=== PATIENT | male | born 1985 | race Caucasian/White ===

== ENCOUNTER 2018-12-13 13:03 | Emergency (ER) | payer SELFPAY ==
[2018-12-13] MEDS ORDERED: 0.9 % SODIUM CHLORIDE 1,000 ML BAG IV ONE ×2 (13:54→15:20)
[2018-12-13] MEDS ORDERED: ONDANSETRON HCL IV 4 MG/2 ML VIAL IV ONE (13:54)
[2018-12-13] MEDS ORDERED: HYDROMORPHONE HCL 2 MG/ML VIAL IVP ONE ×2 (13:58→14:46)
[2018-12-13 14:07] LABS: ABSOLUTE NEUTROPHIL COUNT 4.58; EOS % 1.4 % (0-6); GRAN % 57.8 % (47-80); HEMATOCRIT 44.3 % (42.0-52.0); HEMOGLOBIN 14.9 gm/dl (14.0-18.0); LYMPH % 31.6 % (16-45); MEAN CELL VOLUME 85.5 fl (81-97); MEAN CORPUSCULAR HEMOGLOBIN 28.8 pg (27-33); MEAN CORPUSCULAR HGB CONC 33.6 g/dl (32-36); MONO % 8.2 % (0-9); PLATELET COUNT 425 K/uL (130-400); RED BLOOD COUNT 5.18 M/uL (4.40-5.70); RED CELL DISTRIBUTION WIDTH 12.6 % (11.5-14.5); WHITE BLOOD COUNT W/O DIFF 7.9 K/uL (4.2-12.2)
--- NOTE | 2018-12-13 14:14 | Emergency Department Record ---
History of Present Illness - General Chief Complaint: Abdominal Pain Stated Complaint: LOWER RT ABDOMINAL PAIN Time Seen by Provider: 12/13/18 13:46 Source: Patient Mode of Arrival: Ambulatory Limitations: No limitations - History of Present Illness Initial Comments: pt had a sudden onset rlq ap 4 hrs ago. the pain is sharp and constant. MD Complaint: Abdominal pain Onset/Timin -: Hour(s) Location: RLQ Severity: Moderate Severity scale (1-10): 8 Quality: Sharp Consistency: Constant, Getting worse Improves With: Nothing Worsens With: Movement Associated Symptoms: Constipation, Nausea - Related Data Previous Rx's Medication Instructions Recorded Hydrocodone/Acetaminophen [[place] 1 each PO Q6HR #10 tablet 12/13/18 5-325 Tablet] Tamsulosin HCl [Flomax] 0.4 mg PO DAILY #5 cap.er.24h 12/13/18 Allergies Allergy/AdvReac Type Severity Reaction Status Date / Time No Known Drug Allergies Allergy Verified 12/13/18 13:09 Travel Screening - Travel/Exposure Within Last 30 Days Have you traveled within the last 30 days?: No - Travel/Exposure Within Last Year Have you traveled outside the [place] in the last year?: No - Additonal Travel Details Have you been exposed to anyone with a communicable illness?: No - Travel Symptoms Symptom Screening: None Review of Systems Reviewed: No additional complaints except as noted below Constitutional: Reports: As per HPI. Denies: Chills, Fever, Malaise, Night sweats, Weakness, Weight change Eyes: Reports: As per HPI. Denies: Eye discharge, Eye pain, Photophobia, Vision change ENT: Reports: As per HPI. Denies: Congestion, Dental pain, Ear pain, Epistaxis , Hearing loss, Throat pain Respiratory: Reports: As per HPI. Denies: Cough, Dyspnea, Hemoptysis, Stridor, Wheezes Cardiovascular: Reports: As per HPI. Denies: Arrhythmia, Chest pain, Dyspnea on exertion, Edema, Murmurs, Orthopnea, Palpitations, Paroxysmal nocturnal dyspnea, Rheumatic Fever, Syncope Endocrine: Reports: As per HPI. Denies: Fatigue, Heat or cold intolerance, Polydipsia, Polyuria Gastrointestinal: Reports: As per HPI, Abdominal pain. Denies: Constipation, Diarrhea, Hematemesis, Hematochezia, Melena, Nausea, Vomiting Genitourinary: Reports: As per HPI. Denies: Dysuria, Frequency, Hematuria, Incontinence, Retention, Testicular pain, Testicular mass, Urgency Musculoskeletal: Reports: As per HPI. Denies: Arthralgia, Back pain, Gout, Joint swelling, Myalgia, Neck pain Skin: Reports: As per HPI. Denies: Bruising, Change in color, Change in hair/ nails, Lesions, Pruritus, Rash Neurological: Reports: As per HPI. Denies: Abnormal gait, Confusion, Headache, Numbness, Paresthesias, Seizure, Tingling, Tremors, Vertigo, Weakness Psychiatric: Reports: As per HPI. Denies: Anxiety, Auditory hallucinations, Depression, Homicidal thoughts, Suicidal thoughts, Visual hallucinations Hematological/Lymphatic: Reports: As per HPI. Denies: Anemia, Blood Clots, Easy bleeding, Easy bruising, Swollen glands Past Medical History - SOCIAL HISTORY Smoking Status: Never smoker Alcohol Use: Rare Drug Use: None - RESPIRATORY Hx Respiratory Disorders: No - CARDIOVASCULAR Hx Cardio Disorders: No - NEURO Hx Neuro Disorders: No - GI Hx GI Disorders: No - Hx Genitourinary Disorders: No - ENDOCRINE Hx Endocrine Disorders: No - MUSCULOSKELETAL Hx Musculoskeletal Disorders: No - PSYCH Hx Psych Problems: No - HEMATOLOGY/ONCOLOGY Hx Hematology/Oncology Disorders: No Family Medical History Any Significant Family History?: Yes Hx Diabetes: Father Hx Kidney Disease: Father Physical Exam - General General Appearance: Alert, Oriented x3, Cooperative, Mild distress - Head Head exam: Normal inspection - Eye Eye exam: Normal appearance, PERRL, EOMI Pupils: Normal accommodation - ENT ENT exam: Normal exam, Mucous membranes moist, Normal external ear exam, Normal orophraynx Ear exam: Normal external inspection. negative: External canal tenderness Nasal Exam: Normal inspection. negative: Discharge, Sinus tenderness Mouth exam: Normal external inspection, Tongue normal Teeth exam: Normal inspection. negative: Dental caries Throat exam: Normal inspection. negative: Tonsillar erythema, Tonsillar exudate - Neck Neck exam: Normal inspection, Full ROM. negative: Tenderness - Respiratory Respiratory exam: Normal lung sounds bilaterally. negative: Respiratory distress - Cardiovascular Cardiovascular Exam: Regular rate, Normal rhythm, Normal heart sounds - GI/Abdominal GI/Abdominal exam: Soft, Normal bowel sounds, Guarding, Tenderness (rlq) - Rectal Rectal exam: Deferred - exam: Deferred - Extremities Extremities exam: Normal inspection, Full ROM, Normal capillary refill. negative: Tenderness - Back Back exam: Reports: Normal inspection, Full ROM. Denies: Muscle spasm, Rash noted, Tenderness - Neurological Neurological exam: Alert, CN II-XII intact, Normal gait, Oriented X3 - Psychiatric Psychiatric exam: Normal affect, Normal mood - Skin Skin exam: Dry, Intact, Normal color, Warm Course Vital Signs 12/13/18 13:10 Temperature 97.6 F Pulse Rate 73 Respiratory 20 Rate Blood Pressure 133/87 Pulse Ox 100 - Reevaluation(s) Reevaluation #1: 12/13/18 16:31 pt feels much better Medical Decision Making - Lab Data Result diagrams: 12/13/18 13:45 12/13/18 13:45 Lab Results 12/13/18 Range/Units 13:45 WBC 7.9 (4.2-12.2) K/uL RBC 5.18 (4.40-5.70) M/uL Hgb 14.9 (14.0-18.0) gm/dl Hct 44.3 (42.0-52.0) % MCV 85.5 (81-97) fl MCH 28.8 (27-33) pg MCHC 33.6 (32-36) g/dl RDW 12.6 (11.5-14.5) % Plt Count 425 H (130-400) K/uL MPV 10.0 (7.4-10.4) fl Gran % 57.8 (47-80) % Lymphocytes % 31.6 (16-45) % Monocytes % 8.2 (0-9) % Eosinophils % 1.4 (0-6) % Basophils % 1.0 (0-6) % Absolute Neutrophils 4.58 Disposition Disposition: Discharge Clinical Impression: Renal lithiasis Hydronephrosis Qualifiers: Hydronephrosis type: with ureteral calculous obstruction Qualified Code(s): N13.2 - Hydronephrosis with renal and ureteral calculous obstruction Disposition: Home, Self-Care Condition: (1) Good Instructions: Kidney Stones (ED) Additional Instructions: follow up with family doctor or urologist. return sooner if worse. push fluids Prescriptions: Hydrocodone/Acetaminophen [[place] 5-325 Tablet] 1 each PO Q6HR #10 tablet Tamsulosin HCl [Flomax] 0.4 mg PO DAILY #5 cap.er.24h Referrals: FAVIAN VAZQUEZ M.D. [MEDICAL DOCTOR] - Quality - Quality Measures Quality Measures: N/A - Blood Pressure Screening Does Patient Have Any of the Following: No Blood Pressure Classification: Pre-Hypertensive BP Reading Systolic Measurement: 133 Diastolic Measurement: 87 Screening for High Blood Pressure: < Pre-Hypertensive BP, F/U Documented > [ [id number]] Pre-Hypertensive Follow-up Interventions: Follow-up with rescreen every year.
[2018-12-13 14:17] LABS: BLOOD UREA NITROGEN 17 mg/dL (6-20); CREATININE 0.8 mg/dL (0.7-1.2); EST GLOMERULAR FILTRATION RATE > 60 mL/min; TOTAL PROTEIN 7.8 g/dL (6.6-8.7)
[2018-12-13 14:19] LABS: GLUCOSE,RANDOM 119 mg/dL (74-109)
[2018-12-13 14:22] LABS: ALKALINE PHOSPHATASE 55 U/L (40-129); ALT/SGPT 50 U/L (<41); AST/SGOT 41 U/L (10.0-50.0)
[2018-12-13 14:27] LABS: BILIRUBIN,DIRECT < 0.2 mg/dL (0-0.3)
[2018-12-13] MEDS ORDERED: KETOROLAC 30 MG/ML VIAL IVP ONE (15:16)
[2018-12-13 15:33] LABS: URINE APPEARANCE CLEAR; URINE BILIRUBIN NEGATIVE (NEGATIVE); URINE BLOOD LARGE (NEGATIVE); URINE COLOR YELLOW; URINE GLUCOSE (UA) NEGATIVE (NEGATIVE); URINE KETONE 15 mg/dL (NEGATIVE); URINE LEUKOCYTE ESTERASE NEGATIVE (NEGATIVE); URINE NITRITE NEGATIVE (NEGATIVE); URINE UROBILINOGEN 0.2 E.U./dL (0.20 - 1.00)
[2018-12-13 15:46] LABS: URINE AMORPHOUS SEDIMENT 1+; URINE EPITHELIAL CELLS 0 - 2 (FEW); URINE MUCUS LIGHT; URINE RBC 36 - 50 (NONE SEEN); URINE WBC 0 - 2 (0-2/hpf)
--- NOTE | 2018-12-15 20:44 | CT SCAN REPORT ---
EXAM: CT SCAN ABDOMEN/PELVIS WO CONTRAST HISTORY: RIGHT-SIDED ABDOMINAL PAIN. TECHNIQUE: Noncontrast CT abdomen and pelvis. COMPARISON: None. FINDINGS: Minimal bilateral lower lobe atelectasis. Questionable 12 mm low- attenuation focus in the posterior medial segment of the left hepatic lobe (series 3, image #45). Liver otherwise unremarkable. Unremarkable appearance of the spleen, adrenal glands, and pancreas. Gallbladder is unremarkable. Obstructing 2 mm calculus at the right ureterovesicular junction resulting in mild right hydroureteronephrosis. No additional right intrarenal or ureteral calculi are seen. No left hydronephrosis or calculi. A normal appendix is identified in the right hemipelvis. No focal colonic thickening or inflammatory change. Mild scattered colonic diverticulosis without evidence of acute diverticulitis. Nonspecific mild gaseous distention of the stomach. No free air. No free fluid. Unremarkable appearance of the urinary bladder. Abdominal aorta is nondilated. No acute osseous findings. IMPRESSION: 1. OBSTRUCTING 2 MM CALCULUS AT THE RIGHT URETEROVESICULAR JUNCTION RESULTING IN MILD RIGHT HYDROURETERONEPHROSIS. 2. NORMAL APPENDIX. 3. QUESTIONABLE SMALL LOW-ATTENUATION FOCUS IN THE POSTERIOR MEDIAL LEFT HEPATIC LOBE, MAY REPRESENT CT ARTIFACT OR AN INDETERMINATE LIVER LESION. THIS COULD BE FURTHER CHARACTERIZED WITH CT OR MRI. JOB NUMBER: [id number] [facility]
== END 2018-12-13 17:11 | disposition home or self-care (01) ==
LOC: ER 13:03
DX: N13.2 Hydronephrosis with renal and ureteral calculous obstruction (principal); R10.11 Right upper quadrant pain; R11.0 Nausea
CPT/HCPCS: 74176; 80048; 80076; 81001; 85025; 96374; 96375; 96376; 99284; J1885; J2405; J7030